=== PATIENT | female | born 1995 | race Hispanic/Latino ===

== ENCOUNTER 2017-08-26 14:28 | Emergency (ER) | payer SELFPAY ==
[2017-08-26 14:52] VITALS: RESP 20; TEMP 98.5
[2017-08-26] MEDS ORDERED: Sodium Chloride 0.9% 1,000 ML IV STA (15:53)
--- NOTE | 2017-08-26 16:04 | ED PDOC ---
HPI: Abdomen Time Seen by Provider: 08/26/17 15:17 Chief Complaint (Nursing): GI Problem Chief Complaint (Provider): GI Problem History Per: Patient, Family (Mother) History/Exam Limitations: no limitations Onset/Duration Of Symptoms: Days (x2 weeks) Outside of [place] travel?: No Current Symptoms Are (Timing): Still Present Additional Complaint(s): 22 year old female with a past medical history of depression, who presents to the ED complaining of nausea and vomiting x2 weeks. Patient states shes been feeling nauseous for the past week and yesterday morning began vomiting non- stop for 8 hours. Confirms mild abdominal pain and diarrhea. Reports she had facial swelling 2 weeks ago for which she was prescribed Amoxicillin by her PMD in [place]. States nausea and diarrhea began after starting Amoxicillin, and she was started on Probiotics by her PMD. Denies fever, chills, cough or shortness of breath. Per Mother, patient has had a lack of appetite and significant weight loss over the past few weeks. Of note, patient recently prescribed Trazadone following miscarriage. PMD: Dr. Zapata ([place]) Past Medical History Reviewed: Historical Data, Nursing Documentation, Vital Signs Vital Signs: Last Vital Signs Temp 98.5 F 08/26/17 14:46 Pulse 96 H 08/26/17 14:46 Resp 20 08/26/17 14:46 BP 134/88 08/26/17 14:46 Pulse Ox 99 08/26/17 18:38 - Medical History PMH: Depression - Surgical History Surgical History: No Surg Hx - Family History Family History: States: Unknown Family Hx - Immunization History Hx Tetanus Toxoid Vaccination: No Hx Influenza Vaccination: No Hx Pneumococcal Vaccination: No - Home Medications Home Medications: Ambulatory Orders Medication Instructions Recorded Ondansetron ODT [Zofran ODT] 4 mg PO Q8 PRN #12 odt 08/26/17 - Allergies Allergies/Adverse Reactions: Allergies Allergy/AdvReac Type Severity Reaction Status Date / Time diphenhydramine Allergy RASH Verified 08/26/17 14:46 [From Benadryl] Review of Systems ROS Statement: Except As Marked, All Systems Reviewed And Found Negative Constitutional: Negative for: Fever, Chills Cardiovascular: Negative for: Chest Pain Respiratory: Negative for: Cough, Shortness of Breath Gastrointestinal: Positive for: Nausea, Vomiting, Abdominal Pain, Diarrhea Physical Exam - Reviewed Nursing Documentation Reviewed: Yes Vital Signs Reviewed: Yes - Physical Exam Appears: Positive for: Non-toxic, No Acute Distress Head Exam: Positive for: ATRAUMATIC, NORMAL INSPECTION, NORMOCEPHALIC Skin: Positive for: Normal Color (face flushed), Warm, Dry Eye Exam: Positive for: EOMI, Normal appearance, PERRL ENT: Positive for: Other (mucous membranes dry) Neck: Positive for: Normal, Painless ROM, Supple Cardiovascular/Chest: Positive for: Regular Rate, Rhythm. Negative for: Murmur Respiratory: Positive for: Normal Breath Sounds. Negative for: Respiratory Distress Gastrointestinal/Abdominal: Positive for: Tenderness (mild epigastric tenderness ) Back: Positive for: Normal Inspection. Negative for: L CVA Tenderness, R CVA Tenderness, Vertebral Tenderness Extremity: Positive for: Normal ROM. Negative for: Pedal Edema, Deformity Neurologic/Psych: Positive for: Alert, Oriented (x3). Negative for: Motor/ Sensory Deficits - Laboratory Results Result Diagrams: 08/26/17 16:15 08/26/17 16:15 - ECG O2 Sat by Pulse Oximetry: 99 (RA) Pulse Ox Interpretation: Normal - Progress Re-evaluation Time: 18:34 Condition: Re-examined, Improved Medical Decision Making Medical Decision Making: Time: 15:51 Initial Impression: Vomiting and abdominal pain. Differential diagnoses include , but are not limited to gastritis, pancreatitis, gastroenteritis, biliary disease, acute hepatitis, r/o vs. UTI Plan: --CMP --Hepatitis Panel --Lipase --Urine --Urine dipstick --CBC w/ differential --Famotidine 20 mg IVP --Fluid bolus --Zofran 4mg IV --US Gallbladder --Reevaluation Time: 17:53 US GALLBLADDER FINDINGS: LIVER: Measures 17.0 cm in length. Echogenic liver may be seen in setting of hepatic parenchymal disease or fatty infiltration. No focal hepatic mass identified. The main portal vein appears patent with normal directional flow. No intrahepatic bile duct dilatation. GALLBLADDER: Gallbladder sludge. No gallstones. No gallbladder wall thickening or pericholecystic edema. Negative sonographic Paz's sign as assessed by the senior [email or web address] systems programmer. COMMON BILE DUCT: Measures 4 mm. PANCREAS: Not well-visualized. RIGHT KIDNEY: Measures measures approximately 11.0 x 4.7 x 4.4 cm. No obstructing calculus or hydronephrosis identified. AORTA: Limited visualization appears grossly unremarkable. IVC: Limited visualization appears grossly unremarkable. OTHER FINDINGS: None . IMPRESSION: Gallbladder sludge. Echogenic liver may be seen in setting of hepatic parenchymal disease or fatty infiltration. Time: 18:15 Labs reviewed and no clinically significant abnormalities were found. Patient will be discharged home with Rx for Zofran. Scribe Attestation: Documented by Kelvin Rascon, acting as a scribe for Ld Wilde MD. Scribe Attestation: All medical record entries made by the Scribe were at my direction and personally dictated by me. I have reviewed the chart and agree that the record accurately reflects my personal performance of the history, physical exam, medical decision making, and the department course for this patient. I have also personally directed, reviewed, and agree with the discharge instructions and disposition. Disposition - Clinical Impression Clinical Impression: Vomiting and diarrhea - Patient ED Disposition Is Patient to be Admitted: No Doctor Will See Patient In The: Office Counseled Patient/Family Regarding: Studies Performed, Diagnosis, Need For Followup - Disposition Referrals: [facility] [Outside] Disposition: Routine/Home Disposition Time: 18:15 Condition: GOOD Additional Instructions: Stop taking your new medications. Take zofran for vomiting. Follow up with your PCP in 2-3 days. Return for worsening. Prescriptions: Ondansetron ODT [Zofran ODT] 4 mg PO Q8 PRN #12 odt PRN Reason: Nausea/Vomiting Instructions: Nausea and Vomiting, Adult
[2017-08-26 16:20] LABS: BASO # 0.1 K/uL (0.0-0.2); BASO % 0.5 % (0.0-2.0); EOS % 0.1 % (0.0-4.0); HEMOGLOBIN 14.2 g/dL (12.0-16.0); LYMPH # 2.1 K/uL (1.0-4.3); LYMPH % 16.9 % (20.0-40.0); MEAN CELL VOLUME 86.4 fl (81.0-99.0); MEAN CORPUSCULAR HEMOGLOBIN 28.8 pg (27.0-31.0); MEAN CORPUSCULAR HGB CONC 33.3 g/dL (33.0-37.0); MEAN PLATELET VOLUME 8.1 fl (7.2-11.7); MONO # 0.8 K/uL (0.0-0.8); MONO % 6.8 % (0.0-10.0); NEUT # 9.2 K/uL (1.8-7.0); NEUT % 75.7 % (50.0-75.0); NRBC % 0.2 % (0.0-0.0); RBC 4.96 Mil/uL (3.80-5.20); RED CELL DISTRIBUTION WIDTH 13.2 % (11.5-14.5); WHITE BLOOD COUNT 12.2 K/uL (4.8-10.8)
[2017-08-26 16:32] LABS: ALB/GLOB RATIO 1.4 (1.0-2.1); ALBUMIN 4.6 g/dL (3.5-5.0); ALT/SGPT 48 U/L (9-52); AST/SGOT 37 U/L (14-36); BLOOD UREA NITROGEN 7 mg/dl (7-17); CALCIUM 9.9 mg/dL (8.4-10.2); GFR AFRICAN-AMERICAN > 60; GFR NON-AFRICAN AMERICAN > 60; LIPASE 112 U/L (23-300)
--- NOTE | 2017-08-26 17:55 | US ---
HISTORY: epigastric pain vomiting COMPARISON: None available. TECHNIQUE: Sonographic evaluation of the right upper quadrant of the abdomen. FINDINGS: LIVER: Measures 17.0 cm in length. Echogenic liver may be seen in setting of hepatic parenchymal disease or fatty infiltration. No focal hepatic mass identified. The main portal vein appears patent with normal directional flow. No intrahepatic bile duct dilatation. GALLBLADDER: Gallbladder sludge. No gallstones. No gallbladder wall thickening or pericholecystic edema. Negative sonographic Paz's sign as assessed by the government contracts manager. COMMON BILE DUCT: Measures 4 mm. PANCREAS: Not well-visualized. RIGHT KIDNEY: Measures measures approximately 11.0 x 4.7 x 4.4 cm. No obstructing calculus or hydronephrosis identified. AORTA: Limited visualization appears grossly unremarkable. IVC: Limited visualization appears grossly unremarkable. OTHER FINDINGS: None . IMPRESSION: Gallbladder sludge. Echogenic liver may be seen in setting of hepatic parenchymal disease or fatty infiltration.
[2017-08-26] MEDS ORDERED: Potassium Chloride 20 mEq ER Tab PO ONE (17:59)
[2017-08-26 18:47] VITALS: BP 130/76; PULSE 76; O2SAT 100
[2017-08-26 21:27] LABS: HEPATITIS B SURFACE AG Negative (NEGATIVE)
[2017-08-26 21:33] LABS: HEPATITIS A IGM NEGATIVE (NEGATIVE); HEPATITIS B CORE AB NEGATIVE (NEGATIVE)
[2017-08-26 21:45] LABS: HEPATITIS C ANTIBODY NEGATIVE (NEGATIVE)
== END 2017-08-26 18:39 | disposition home or self-care (01) ==
LOC: H.ER 14:28
DX: R11.2 Nausea with vomiting, unspecified (principal); R19.7 Diarrhea, unspecified; F32.9 Major depressive disorder, single episode, unspecified; R10.9 Unspecified abdominal pain
CPT/HCPCS: 76705; 80053; 80074; 81025; 83690; 85025; 96361; 96374; 96375; 99284; J2405; J7040